=== PATIENT | male | born 1955 | race Caucasian/White ===

== ENCOUNTER 2024-08-29 14:41 | Inpatient (IN) | payer MEDICARE, BC ==
[~2024-08-29 14:41] MED LIST: Bupivacaine 0.25%/EPINEPHrine 1:200,000 30 ML SDV ONE
[2024-08-29] MEDS ORDERED: Propofol 200 MG/20 ML SDV ONE ×2 (14:51→15:49)
[2024-08-29] MEDS ORDERED: fentaNYL 100 MCG/2 ML SDV ONE (14:51)
[2024-08-29] MEDS ORDERED: Midazolam 1 MG/ML 2 ML SDV ONE (14:51)
[2024-08-29] MEDS ORDERED: Morphine 2 MG/ML SYRINGE IV PRN (14:54)
[2024-08-29] MEDS ORDERED: Ondansetron 4 MG/2 ML SDV IVPUSH PRN (14:54)
[2024-08-29] MEDS ORDERED: Magnesium Hydroxide 400 MG/5 ML Susp 30 ML Cup PO PRN (14:54)
[2024-08-29] MEDS ORDERED: oxyCODONE 5 MG Tab PO PRN (14:54)
[2024-08-29] MEDS ORDERED: Docusate Sodium 100 MG Cap PO PRN (14:54)
[2024-08-29] MEDS: Nozin Nasal Sanitizer NASBOTH SCH ×2 (15:14→20:22)
[2024-08-29] MEDS: Lactated Ringers 1,000 ML IV SCH (15:15)
[2024-08-29] MEDS: ceFAZolin 2 GM in Premix Bag 1 BAG IV ONE (15:25)
[2024-08-29] MEDS ORDERED: ePHEDrine 50 MG/ML SDV ONE (16:06)
[2024-08-29] MEDS: Bupivacaine 0.5%/EPINEPHrine 1:200,000 50 ML MDV ONE (16:27)
[2024-08-29] MEDS: Sodium Chloride 0.9% 1,000 ML IV SCH (18:23)
[2024-08-29] MEDS: Ketorolac 15 MG/ML SDV IVPUSH PRN (18:24)
[2024-08-29] MEDS: Acetaminophen 325 MG Tab PO SCH (18:24)
[2024-08-29] MEDS: ClonazePAM 0.5 MG Tab PO SCH (20:21)
[2024-08-29] MEDS: oxyCODONE 5 MG Tab PO PRN (20:21)
[2024-08-29] MEDS: Mirtazapine 15 MG Tab PO SCH (20:25)
[2024-08-29] MEDS: ceFAZolin 2 GM in Premix Bag 1 BAG IV SCH (23:38)
[2024-08-30 06:28] LABS: HEMATOCRIT 31.3 % (38.4-49.7); HEMOGLOBIN 11.1 g/dL (12.9-16.9); MEAN CORPUSCULAR HEMOGLOBIN 32.4 pg (31.6-35.5); MEAN CORPUSCULAR HGB CONC 35.5 g/dL (31.6-35.5); MEAN CORPUSCULAR VOLUME 91.3 fL (81.4-99.0); RED BLOOD CELL COUNT 3.43 M/uL (4.14-5.76); WHITE BLOOD CELL COUNT,WBC 7.5 K/uL (3.2-11.0)
[2024-08-30] MEDS ORDERED: Non-Formulary Medication 1 Each (Duloxetine [Cymbalta] 60 MG Cap) PO SCH (09:00)
[2024-08-30] MEDS: Aspirin 325 MG Tab.EC PO SCH (09:07)
[2024-08-30] MEDS: Finasteride 5 MG Tab PO SCH (09:08)
[2024-08-30] MEDS: DULoxetine 30 MG Cap PO SCH (09:08)
[2024-08-30] MEDS: Cholecalciferol (Vitamin D3) 25 MCG Tab PO SCH (09:08)
== END 2024-08-31 14:10 | disposition home or self-care (01) | DRG 482 ==
LOC: JP.SDS 14:41 → JP.MS 14:55 → JP.SDS 08-30 16:44 → JP.MS 08-30 16:44
PROVIDERS: ADMIT Specialist; ATTEND Specialist
PROC: 0QS736Z Reposition Left Upper Femur with Intramedullary Internal Fixation Device, Percutaneous Approach (ICD-10-PCS; principal; 2024-08-29 14:30)
DX: S72.142A Displaced intertrochanteric fracture of left femur, initial encounter for closed fracture (principal); J40 Bronchitis, not specified as acute or chronic; F41.8 Other specified anxiety disorders; M54.9 Dorsalgia, unspecified; G89.29 Other chronic pain; F11.90 Opioid use, unspecified, uncomplicated; Z98.890 Other specified postprocedural states; Z85.46 Personal history of malignant neoplasm of prostate; W19.XXXA Unspecified fall, initial encounter
CPT/HCPCS: 01230-QZ; 36415; 76000; 85027; 97110-GP; 97116-GP; 97161-GP; 97165-GO; A9270-GY; C1713; C1776; J0690; J1885; J2250; J2704; J3010; J3490; J7030; J7120

== ENCOUNTER 2025-01-17 01:07 | Emergency (ER) | payer MEDICARE, BC | END 2025-01-17 03:35 | disposition home or self-care (01) | LOC: JP.ED 01:07 | DX: S22.42XA Multiple fractures of ribs, left side, initial encounter for closed fracture (principal); Z91.09 Other allergy status, other than to drugs and biological substances; Z79.899 Other long term (current) drug therapy; Z86.16 Personal history of COVID-19; W19.XXXA Unspecified fall, initial encounter | CPT/HCPCS: 71101-LT; 99283 ==